=== PATIENT | male | born 1980 | race Caucasian/White ===

== ENCOUNTER 2020-01-01 16:45 | Emergency (ER) | payer MEDICARE ==
[~2020-01-01] VITALS: Ht 190.5 cm; Wt 65.8 kg
[2020-01-01 17:12] VITALS: BP 130/80
[2020-01-01] MEDS ORDERED: Lidocaine 1% 10mg/ml/Epi 0.005mg/ml 30ml vial INJ ONE ×2 (17:44→17:45)
--- NOTE | 2020-01-01 18:36 | Emergency Room Report ---
History of Present Illness General Chief Complaint: Earache Present Illness HPI 39-year-old male who appears to be under the influence of unknown substance coming from Street complaining of over 2 months of right wrist pain which does not recall where he injured it. Obvious deformity noted. Also complains of 1 week of left earache. Denies any fever chills, cough or congestion, shortness of breath. 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 Patient History Past Medical History: see triage record Past Surgical History: unable to obtain Family History: unable to obtain Reviewed Nursing Documentation: PMH: Agreed; PSxH: Agreed Review of Systems All Other Systems: negative except mentioned in HPI Physical Exam Vital Signs Date Time Temp Pulse Resp B/P (MAP) Pulse Ox O2 Delivery O2 Flow Rate FiO2 01/01/20 17:04 97.9 105 20 122/75 (91) 99 Room Air Sp02 EP Interpretation: reviewed, normal General Appearance: alert/responsive, no apparent distress Head: atraumatic Eyes: PERRL, lids + conjunctiva normal ENT: hearing intact, no angioedema, other - left TM buldging Neck: supple/symm/no masses, no meningismus Respiratory: effort normal, no wheezing, chest symmetrical Cardiovascular: regular rate, rhythm, no edema Gastrointestinal: non-tender, no mass, non-distended Musculoskeletal: gait & station normal, other - right wrist deformity and swelling Neurologic: oriented x3, sensory intact, normal speech Psychiatric: judgment & insight normal Skin: no rash Lymphatic: normal inspection Procedures Splinting Splinting : Consent: Verbal Location: right wrist Hand-Made Type: plaster Splint: wrist Pre-Proc Neuro Vasc Exam: normal Post-Proc Neuro Vasc Exam: normal Patient Tolerated: Well Complications: None Progress arm sling Medical Decision Making PA Attestation All diagnoses and treatment plans were reviewed and discussed with my supervising physician Dr. Buckner Diagnostic Impression: Primary Impression: Wrist fracture Additional Impression: Otitis media ER Course 39-year-old male who appears to be under the influence of unknown substance coming from Street complaining of over 2 months of right wrist pain which does not recall where he injured it. Obvious deformity noted. Also complains of 1 week of left earache. Denies any fever chills, cough or congestion, shortness of breath. Appears to be afebrile with good oxygenation., Ddx considered but are not limited to : Wrist sprain, wrist strain, wrist fracture Vital signs: are WNL, pt. 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 is stable for d/c to home. Will provide printed patient care instructions, and any necessary prescriptions. Care plan and follow up instructions have been discussed with the patient prior to discharge. Patient to follow-up with consumer loan specialist, take medication as directed, if worsening symptoms return to the emergency room Other X-Ray Diagnostic Results Other X-Ray Diagnostic Results : X-Ray ordered: wrist X ray # of Views/Limited Vs Complete: 3 View Indication: Pain EP Interpretation: Yes Interpretation: other - displaced distal ulnar fx Impression: Other - chronic displaced ulnar fx with calcification Electronically Signed by: Monet Hernández PA-C Last Vital Signs Date Time Temp Pulse Resp B/P (MAP) Pulse Ox O2 Delivery O2 Flow Rate FiO2 01/01/20 17:12 98.0 97 20 130/80 99 Room Air Disposition: HOME, SELF-CARE Condition: Stable Referrals: NOT CHOSEN IPA/,REFERRING (PCP) Patient Instructions: Otitis Media, Adult, [id number], Wrist Fracture With [facility] Additional Instructions: Take medication as directed, follow-up with consumer loan specialist, if worsening symptoms return to the emergency room Monet Badillo January 01, 2020 18:36
[2020-01-01] MEDS ORDERED: AMOXICILLIN500 MG ORAL (18:37)
[2020-01-01] MEDS ORDERED: IBUPROFEN600 M1 ORAL (18:37)
[2020-01-01 18:46] VITALS: BP 128/78
--- NOTE | 2020-01-03 16:30 | Diagnostic Imaging Report ---
EXAM: X-RAY XRAY Wrist Complete R CLINICAL HISTORY: Wrist pain. COMPARISON: None FINDINGS: Total of 3 views of the right wrist were obtained. There is a subacute fracture of the distal ulna. There is slight offset noted. Healing periosteal new bone and callus formation demonstrated. The other bony appendages are intact. Joint spaces are unremarkable. There is mild soft tissue swelling. IMPRESSION: SUBACUTE HEALING DISTAL ULNAR FRACTURE WITH SLIGHT OFFSET.
== END 2020-01-01 18:46 | disposition home or self-care (01) ==
LOC: EMR 17:05
DX: S52.601A Unspecified fracture of lower end of right ulna, initial encounter for closed fracture (principal); H66.92 Otitis media, unspecified, left ear; X58.XXXA Exposure to other specified factors, initial encounter; Y93.9 Activity, unspecified; Y92.9 Unspecified place or not applicable
CPT/HCPCS: 29125; 99283